=== PATIENT | male | born 1955 | race Caucasian/White ===

== ENCOUNTER 2018-07-29 07:11 | Day surgery (SDC) | payer OTHER ==
[~2018-07-29] VITALS: Ht 167.6 cm; Wt 86.2 kg
[2018-07-29 08:37] LABS: BASOPHILS % (AUTO) 0.5 % (0.0-2.0); EOSINOPHILS # (AUTO) 0.1 K/uL (0-0.4); EOSINOPHILS % (AUTO) 3.2 % (0.0-4.0); HEMATOCRIT 45.1 % (36-52); HEMOGLOBIN 15.3 g/dL (12.0-18.0); LYMPHOCYTES # (AUTO) 1.2 K/uL (2.0-11.5); MEAN CORPUSCULAR HEMOGLOBIN 31 pg (27-31); MEAN CORPUSCULAR HGB CONC 34 g/dL (33-37); MEAN CORPUSCULAR VOLUME 90.7 fL (80-94); MONOCYTES # (AUTO) 0.4 K/uL (0.8-1.0); MONOCYTES % (AUTO) 9.7 % (1.7-9.3); NEUTROPHILS # (AUTO) 2.7 K/uL (1.8-7.7); NEUTROPHILS % (AUTO) 59.6 % (42.2-75.2); PLATELET COUNT (AUTO) 152 K/uL (140-450); RED BLOOD CELL COUNT(AUTO) 4.97 MIL/uL (4.20-6.10); RED CELL DISTRIBUTION WIDTH 13.3 % (11.6-13.7); WHITE BLOOD COUNT (AUTO) 4.5 K/uL (4.8-10.8)
[2018-07-29 08:48] LABS: PROTHROMBIN TIME 9.8 secs (10.8-13.4)
[2018-07-29] MEDS ORDERED: LIDOCAINE 2% 1000 MG/50 ML VIAL INJ ONE (09:37)
[2018-07-29] MEDS ORDERED: fentaNYL 0.05 MG/ML VIAL ONE (09:44)
== END 2018-07-29 11:02 | disposition home or self-care (01) ==
LOC: MDS 07:11 → MMU 07:11 → MDS 11:02
PROVIDERS: ATTEND Internal Medicine Gastroenterology
DX: R94.5 Abnormal results of liver function studies (principal); I10 Essential (primary) hypertension; E11.9 Type 2 diabetes mellitus without complications; E78.00 Pure hypercholesterolemia, unspecified; N40.0 Benign prostatic hyperplasia without lower urinary tract symptoms; E66.9 Obesity, unspecified; Z68.30 Body mass index [BMI] 30.0-30.9, adult; Z98.890 Other specified postprocedural states; Z72.89 Other problems related to lifestyle; Z79.82 Long term (current) use of aspirin; Z79.899 Other long term (current) drug therapy; Z79.84 Long term (current) use of oral hypoglycemic drugs
CPT/HCPCS: 36415; 47000; 76942; 85025; 85610; 85730; J2001; J3010; Q0092; 88307; 88313